=== PATIENT | female | born 1975 | race Asian ===

== ENCOUNTER 2016-10-20 00:15 | Inpatient (IN) | payer SELFPAY ==
[~2016-10-20] VITALS: Ht 164 cm; Wt 81.6 kg
[2016-10-20] MEDS ORDERED: LACTATED RINGERS 1,000 ML IV SCH (01:29)
[2016-10-20] MEDS ORDERED: PREN1SGL25 PO (01:29)
[2016-10-20] MEDS ORDERED: IBUPROFEN 800 MG TAB PO PRN ×2 (01:30→07:20)
[2016-10-20 02:12] LABS: BASOPHILS # (AUTO) 0.1 K/uL (0.00-0.22); EOSINOPHILS # (AUTO) 0.2 K/uL (0-0.4); EOSINOPHILS % (AUTO) 1.7 % (0.0-4.0); HEMATOCRIT 36.5 % (36-48); HEMOGLOBIN 12.1 g/dL (12.0-16.0); LYMPHOCYTES # (AUTO) 1.7 K/uL (2.5-16.5); LYMPHOCYTES % (AUTO) 18.7 % (20.5-51.1); MEAN CORPUSCULAR HEMOGLOBIN 30 pg (27-31); MEAN CORPUSCULAR HGB CONC 33 g/dL (33-37); MEAN CORPUSCULAR VOLUME 92 fL (80-94); MONOCYTES # (AUTO) 0.5 K/uL (0.8-1.0); MONOCYTES % (AUTO) 5.4 % (1.7-9.3); NEUTROPHILS # (AUTO) 6.4 K/uL (1.8-7.7); NEUTROPHILS % (AUTO) 73.2 % (42.2-75.2); PLATELET COUNT (AUTO) 123 K/uL (140-450); RED BLOOD CELL COUNT(AUTO) 3.96 MIL/uL (4.20-5.40); RED CELL DISTRIBUTION WIDTH 14.9 % (11.6-13.7); WHITE BLOOD COUNT (AUTO) 8.9 K/uL (4.8-10.8)
[2016-10-20 02:28] LABS: ALBUMIN 2.8 g/dL (3.4-5.0); ANION GAP 16.6 (8-16); CARBON DIOXIDE 18.8 mmol/L (21-32); CREATININE 0.4 mg/dL (0.6-1.3); POTASSIUM 3.4 mmol/L (3.5-5.1); TOTAL BILIRUBIN 0.4 mg/dL (0.0-1.0)
[2016-10-20 02:37] LABS: APPEARANCE,URINE SL CLOUDY (CLEAR); BILIRUBIN,URINE NEGATIVE (NEGATIVE); BLOOD, URINE TRACE-I (NEGATIVE); COLOR,URINE YELLOW (YELLOW); LEUKOCYTE ESTERASE ,URINE NEGATIVE (NEGATIVE); NITRITE, URINE NEGATIVE (NEGATIVE); UGLUCOSE NEGATIVE (NEGATIVE)
[2016-10-20 02:38] LABS: CALCIUM OXALATE CRYSTALS,UR 30-50 /HPF (None Seen); RBC,URINE 0-5 (RARE) /HPF (0-5); WBC,URINE 0-5 (RARE) /HPF (0-5)
[2016-10-20] MEDS ORDERED: TRIAMCINOLONE 10 MG/ML 5ML VIAL ONE (05:31)
[2016-10-20] MEDS ORDERED: OXYTOCIN 10 UNITS/ML VIAL ONE (05:32)
[2016-10-20] MEDS ORDERED: METHYLERGONOVINE 0.2 MG/ML AMP ONE (05:33)
[2016-10-20] MEDS ORDERED: MIDAZOLAM 2 MG/2 ML VIAL ONE (05:33)
[2016-10-20] MEDS ORDERED: MORPHINE PRES FREE 10 MG/10 ML AMP IV ONE (05:34)
[2016-10-20] MEDS ORDERED: ceFAZolin 1,000 MG VIAL ONE (05:36)
[2016-10-20] MEDS ORDERED: ceFAZolin 1,000 MG VIAL IVP ONE (05:40)
[2016-10-20] MEDS ORDERED: ONDANSETRON 4 MG/2 ML VIAL IVP PRN ×2 (06:00)
[2016-10-20] MEDS ORDERED: HYDROmorphone 1 MG/ML AMP IVP PRN (06:00)
[2016-10-20] MEDS ORDERED: NALBUPHINE 10 MG/ML AMP IVP PRN (06:00)
[2016-10-20] MEDS ORDERED: NALOXONE 0.4 MG/ML VIAL IVP PRN ×3 (06:00)
[2016-10-20] MEDS ORDERED: diphenhydrAMINE 50 MG/ML VIAL IVP PRN ×2 (06:00)
[2016-10-20] MEDS ORDERED: MEPERIDINE 25 MG/ML SYR IVP PRN (06:00)
[2016-10-20] MEDS: KETOROLAC 30 MG/ML VIAL IM/IVP SCH ×2 (06:00→18:25)
[2016-10-20] MEDS ORDERED: OXYTOCIN 20 UNITS/LR PREMIX 1,000 ML IV SCH (06:00)
[2016-10-20] MEDS ORDERED: ONDANSETRON 4 MG/2 ML VIAL ONE (06:46)
[2016-10-20] MEDS ORDERED: METHYLERGONOVINE 0.2 MG/ML AMP IM PRN (07:20)
[2016-10-20] MEDS ORDERED: TEMAZEPAM 15 MG CAP PO PRN (07:20)
[2016-10-20] MEDS ORDERED: oxyCODONE/APAP 5/325 MG 1 TAB TAB PO PRN (07:20)
[2016-10-20] MEDS ORDERED: SIMETHICONE 80 MG TAB.CHEW PO PRN (07:20)
[2016-10-20] MEDS ORDERED: HYDROcodone/APAP 5/325 MG 1 TAB TAB PO PRN (07:20)
[2016-10-20] MEDS ORDERED: MEASLES, MUMPS, AND RUBELLA 1 VIAL SQVAC PRN (07:20)
[2016-10-20] MEDS ORDERED: TRIMETHOBENZAMIDE 200 MG/2 ML SYR IM PRN (07:20)
--- NOTE | 2016-10-20 11:33 | NUR ---
PATIENT HAS BEEN SCREENED AND CATEGORIZED LOW NUTRITION RISK. PATIENT WILL BE SEEN WITHIN 7 DAYS OF ADMISSION. 10/26/[address]
[2016-10-20] MEDS: OXYTOCIN 20 UNITS/LR PREMIX 1,000 ML IV SCH ×2 (12:32→20:56)
[2016-10-20] MEDS ORDERED: DOCUSATE SOD/SENNA 50/8.6 MG 1 TAB PO SCH (21:00)
[2016-10-21 05:51] LABS: BASOPHILS % (AUTO) 0.3 % (0.0-2.0); EOSINOPHILS # (AUTO) 0.1 K/uL (0-0.4); EOSINOPHILS % (AUTO) 0.8 % (0.0-4.0); HEMATOCRIT 34.8 % (36-48); HEMOGLOBIN 11.8 g/dL (12.0-16.0); LYMPHOCYTES # (AUTO) 1.2 K/uL (2.5-16.5); LYMPHOCYTES % (AUTO) 12.2 % (20.5-51.1); MEAN CORPUSCULAR HEMOGLOBIN 31 pg (27-31); MEAN CORPUSCULAR HGB CONC 34 g/dL (33-37); MEAN CORPUSCULAR VOLUME 93 fL (80-94); MONOCYTES # (AUTO) 0.6 K/uL (0.8-1.0); MONOCYTES % (AUTO) 5.9 % (1.7-9.3); NEUTROPHILS # (AUTO) 8.3 K/uL (1.8-7.7); NEUTROPHILS % (AUTO) 80.8 % (42.2-75.2); PLATELET COUNT (AUTO) 87 K/uL (140-450); RED BLOOD CELL COUNT(AUTO) 3.76 MIL/uL (4.20-5.40); RED CELL DISTRIBUTION WIDTH 15.1 % (11.6-13.7); WHITE BLOOD COUNT (AUTO) 10.2 K/uL (4.8-10.8)
[2016-10-21 08:04] LABS: RAPID PLASMA REAGIN NON-REACTIVE (Non Reactiv)
== END 2016-10-23 15:20 | disposition home or self-care (01) | DRG 766 ==
LOC: MFCC 00:15
PROVIDERS: ADMIT Obstetrics & Gynecology; ATTEND Obstetrics & Gynecology
PROC: 10D00Z1 Extraction of Products of Conception, Low, Open Approach (ICD-10-PCS; principal; 2016-10-20 05:30)
PROC: 3E0234Z Introduction of Serum, Toxoid and Vaccine into Muscle, Percutaneous Approach (ICD-10-PCS; 2016-10-23)
DX: O34.211 Maternal care for low transverse scar from previous cesarean delivery (principal); Z23 Encounter for immunization; Z37.0 Single live birth; Z3A.39 39 weeks gestation of pregnancy; Z82.49 Family history of ischemic heart disease and other diseases of the circulatory system
CPT/HCPCS: 36415; 80053; 81001; 85025; 86592; 86886; 86900; 86901; 87086; 90707; 90715; J0690; J1200; J1885; J2210; J2250; J2270; J2405; J2590; J3301; J7120